=== PATIENT | female | born 1985 | race Caucasian/White ===

== ENCOUNTER → 2022-09-03 | Outpatient (REF) | payer OTHER ==
[~2022-09-03] MED LIST: KETO10TAB PO; LINE1TAB PO
[2022-09-03 14:48] LABS: GC DNA AMPLIFICATION NEGATIVE (NEGATIVE)
== END ==
LOC: M LAB REF 12:53
PROVIDERS: ATTEND Family Medicine
DX: F11.20 Opioid dependence, uncomplicated (principal)